=== PATIENT | female | born 1960 | race Caucasian/White ===

== ENCOUNTER 2016-02-29 12:57 | Outpatient (RCR) | payer BC ==
[~2016-02-29 12:57] MED LIST: BILBERRY500 MG PO; FERROUS SULFAT325 MG ORAL; GLUCOSAMIN-CHO1 EAC1 PO; MULTIVITAMINS1 EA14 PO; QUERCETIN DIHYDR1 GM MC; RUTIN MC; VITAMIN B COMP1 EAC5 PO; VITAMIN B-1000.4 MG PO; VITAMIN C500 M1 ORAL; VITAMIN D1000 UNI1 ORAL; [UNRECOGNIZED DRUG - OTHER] PO
== END 2016-03-26 | disposition home or self-care (01) ==
LOC: PTY 12:57
DX: S43.014A Anterior dislocation of right humerus, initial encounter (principal); S42.214D Unspecified nondisplaced fracture of surgical neck of right humerus, subsequent encounter for fracture with routine healing; Z91.81 History of falling; Z86.59 Personal history of other mental and behavioral disorders; X58.XXXA Exposure to other specified factors, initial encounter; Y92.9 Unspecified place or not applicable; Z88.6 Allergy status to analgesic agent; Z88.0 Allergy status to penicillin
CPT/HCPCS: 97110; 97140; G0283

== ENCOUNTER 2016-12-17 13:45 | Outpatient (RCR) | payer BC ==
[2016-12-19] MEDS ORDERED: IRON SUPPLEMENT (14:12)
== END 2016-12-24 | disposition home or self-care (01) ==
LOC: PTY 13:45
DX: M75.121 Complete rotator cuff tear or rupture of right shoulder, not specified as traumatic (principal)
CPT/HCPCS: 97110; 97140; 97161; G0283

== ENCOUNTER 2016-12-19 13:36 | Outpatient (CLI) | payer BC ==
[~2016-12-19] VITALS: Ht 160 cm; Wt 56.7 kg
[2016-12-19 14:06] VITALS: BP 134/75
[2016-12-19] MEDS ORDERED: IRON SUPPLEMENT (14:12)
--- NOTE | 2016-12-19 15:43 | GI Initial Consult Note ---
History of Present Illness General Date patient seen: Dec 19, 2016 Time patient seen: 15:39 Referring physician: TERRI Reason for Consultation: SCREENING COLON Present Illness HPI 56 year old female patient referred by Dr. Das for screening colonoscopy. In addition the patient presents with c/o of epigastric pain, long history of constipation and hemorrhoids. Has been taking [place]/Ibuprofen after her surgery in June 2015. The patient has tried changing her dietary habits with little success. Home Meds Reported Medications [Iron Supplement ] No Conflict Check 12/19/16 Rutin (Rutin) 25 Gm Powder, 25 GM MC DAILY, GM 07/25/15 Quercetin Dihydrate (QUERCETIN DIHYDRATE) 1 Gm Powder, 1 GM MC DAILY, GM 07/25/15 [Super Vision] No Conflict Check, 1 TAB-CAP PO DAILY 07/25/15 Vitamin B Complex/Folic Acid (VITAMIN B-100 COMPLEX TABLET) 0.4 Mg Tablet, 0.4 MG PO DAILY, TAB 07/25/15 Ascorbic Acid* (VITAMIN C*) 500 Mg Tablet, 1000 MG ORAL, #30 TAB 0 Refills 07/25/15 Cholecalciferol (Vitamin D3)* (VITAMIN D*) 1,000 Unit Tablet, 1000 UNIT ORAL DAILY, #30 TAB 07/21/15 Gluc/Myke-Msm#2/C/D3/Peter/Born ([id number]-CFD TAB) 1 Each Tablet, 1 EACH PO BID, TAB 07/21/15 Multivitamin (Multivitamins) 1 Each Tablet, 1 EACH PO DA, TAB 07/21/15 Discontinued Reported Medications Bilberry Fruit (BILBERRY) 500 Mg Capsule, 500 MG PO DAILY, CAP 07/25/15 Ferrous Sulfate* (FERROUS SULFATE*) 325 Mg Tablet, 325 MG ORAL DAILY, #30 TAB 0 Refills 07/25/15 Med list reviewed/reconciled: Yes Allergies: Coded Allergies: CODEINE (Verified Allergy, Unknown, 07/21/15) PENICILLINS (Verified Allergy, Unknown, 07/21/15) Patient History History Provided By: Patient PMH Narrative Molar Past Surgical History: 2015 Right Dislocated Shoulder Left Eye Family History Narrative adopted Social History: Reports: smoking - 1/2 packs a day x 16 years, quit for 25y, alcohol use, other - cofee Review of Systems All Other Systems: negative except mentioned in HPI Physical Exam Vital Signs Date Time Temp Pulse Resp B/P (MAP) Pulse Ox O2 Delivery O2 Flow Rate FiO2 12/19/16 14:06 97.7 73 16 134/75 97 Sp02 EP Interpretation: reviewed, normal General Appearance: well appearing, no apparent distress, alert Head: normocephalic EENT: PERRL/EOMI, normal ENT inspection Neck: supple Respiratory: normal breath sounds, no respiratory distress Cardiovascular: normal rate Gastrointestinal: normal inspection, non tender, soft, normal bowel sounds, non -distended Rectal: deferred Genitourinary: no CVA tenderness Musculoskeletal: normal inspection, back normal Neurologic: normal inspection, alert, oriented x3, responsive Psychiatric: normal inspection, judgement/insight normal, memory normal Skin: normal inspection, normal color, no rash, warm/dry, palpation normal, well hydrated Lymphatic: normal inspection, no adenopathy GI: Plan Problems: (1) Colonoscopy planned (2) Molar (3) Constipation (4) Abdominal pain Plan EGD/colonoscopy scheduled 12/27/16. - CLD & (Nulytely/Suprep) prep instructions given and acknowledged by patient. - NPO @ [place] day prior procedure explained. Seen with Dr. Roger. Thank you for this patient referral. Dianna Hartman N.P. Dec 19, 2016 15:43
== END 2016-12-19 14:15 | disposition home or self-care (01) ==
LOC: PAN 13:36
DX: K59.00 Constipation, unspecified (principal); R10.9 Unspecified abdominal pain; O02.0 Blighted ovum and nonhydatidiform mole; Z88.6 Allergy status to analgesic agent; Z88.0 Allergy status to penicillin; F17.210 Nicotine dependence, cigarettes, uncomplicated
CPT/HCPCS: 99201

== ENCOUNTER 2017-01-13 08:57 | Day surgery (SDC) | payer BC ==
[2017-01-13] VITALS (7 sets, daily range): BP systolic 121–140; BP diastolic 71–86
[~2017-01-13] VITALS: Ht 160 cm; Wt 55.3 kg
--- NOTE | 2017-01-13 06:46 | Anethesia Preoperative Eval ---
Anesthesia Pre-op PMH/ROS General Date of Evaluation: Jan 13, 2017 Time of Evaluation: 06:43 Anesthesiologist: danya ASA Score: ASA 3 Mallampati Score Class I : Soft palate, uvula, fauces, pillars visible Class II: Soft palate, uvula, fauces visible Class III: Soft palate, base of uvula visible Class IV: Only hard plate visible Mallampati Classification: Class I Surgeon: thierno Diagnosis: abdominal pain/colon screening Surgical Procedure: egd/colonoscopy Anesthesia History: none Social History: smoking - former smoker Family History: no anesthesia problems Allergies: Coded Allergies: CODEINE (Verified Allergy, Severe, HALLUCINATIONS, HOT FLASHES , 01/13/17) PENICILLINS (Verified Allergy, Severe, 01/13/17) Medications: see eMAR Past Medical History Cardiovascular: Reports: HTN Gastrointestinal/Genitourinary: Reports: other - constipation, abd pain, molar , Neurologic/Psychiatric: Reports: other - weak eye, migraine augustin, Musculoskeletal/Integumentary: Reports: other - bilateral carpal tunnel syndrome Anesthesia Pre-op Phys. Exam Physician Exam Last Vital Signs Date Time Temp Pulse Resp B/P (MAP) Pulse Ox O2 Delivery O2 Flow Rate FiO2 01/13/17 09:31 97.6 87 18 140/86 100 Room Air Constitutional: NAD Neurologic: other - weakness left eye Cardiovascular: RRR Respiratory: CTA Gastrointestinal: S/NT/ND Airway Exam Mallampati Score: Class II MO: full Neck: supple TMD: 2fb ROM: full Anesthesia Pre-op A/P Studies Pre-op Studies: EKG - nsr Risk Assessment & Plan Assessment: asa3 Plan: mac Status Change Before Surgery: No Pre-Antibiotics Drug: KAVYA Sanches Jan 13, 2017 06:46
[~2017-01-13 08:57] MED LIST changes: +IRON SUPPLEMENT
[2017-01-13] MEDS ORDERED: Propofol 200mg/20ml IV ONE (10:00)
[2017-01-13] MEDS ORDERED: Lidocaine 1% MPF 10mg/ml 5ml ONE (10:00)
--- NOTE | 2017-01-13 10:12 | Pre-Procedure Note/Attestation ---
Pre-Procedure Note/Attestation Complete Prior to Procedure Planned Procedure: not applicable Procedure Narrative: colonoscopy Indications for Procedure Pre-Operative Diagnosis: screening colon Attestation I attest that I discussed the nature of the procedure; its benefits; risks and complications; and alternatives (and the risks and benefits of such alternatives ), prior to the procedure, with the patient (or the patient's legal patient access representative). I attest that, if there was a reasonable possibility of needing a blood transfusion, the patient (or the patient's legal patient access representative) was given the [facility] standardized written summary, pursuant to the Yomi Regino Blood Safety Act ([place] Health and Safety Code # 1645, as amended). I attest that I re-evaluated the patient just prior to the surgery and that there has been no change in the patient's H&P, except as documented below: LUZ MARINA SHANE Jan 13, 2017 10:12
--- NOTE | 2017-01-13 10:13 | Short Stay Surgery H&P ---
History of Present Illness History of Present Illness Chief Complaint see recent clinic note HPI Susannah Mejia is a 56 year old female who was admitted on for Abdominal Pain/ Colon Screening Patient History Allergies: Coded Allergies: CODEINE (Verified Allergy, Severe, HALLUCINATIONS, HOT FLASHES , 01/13/17) PENICILLINS (Verified Allergy, Severe, 01/13/17) PAST MEDICAL HISTORY: Past Surgeries: Social History: Medication History Scheduled Cholecalciferol (Vitamin D3)* (Vitamin D*), 1,000 UNIT ORAL DAILY, (Reported) Gluc/Myke-Msm#2/C/D3/Peter/Born (Meisnbsklf-Yudlxggxecj-Mkf Tab), 1 EACH PO BID, (Reported) Multivitamin (Multivitamins), 1 EACH PO DA, (Reported) Quercetin Dihydrate (Quercetin Dihydrate), 1 GM MC DAILY, (Reported) Rutin (Rutin), 25 GM MC DAILY, (Reported) Vitamin B Complex/Folic Acid (Vitamin B-100 Complex Tablet), 0.4 MG PO DAILY, ( Reported) [Super Vision], 1 TAB-CAP PO DAILY, (Reported) Miscellaneous Medications Ascorbic Acid* (Vitamin C*), 1,000 MG ORAL, (Reported) [Iron Supplement ], (Reported) Physical Exam Vital Signs Last Vital Signs Date Time Temp Pulse Resp B/P (MAP) Pulse Ox O2 Delivery O2 Flow Rate FiO2 01/13/17 09:31 97.6 87 18 140/86 100 Room Air Plan Attestation Are the patient's medical conditions optimized for surgery? LUZ MARINA SHANE Jan 13, 2017 10:13
[2017-01-13] MEDS ORDERED: fentaNYL 100 mcg/2 mL IV PRN (10:15)
[2017-01-13] MEDS ORDERED: DiphenhydrAMINE 50mg/ml Inj IVP PRN (10:15)
[2017-01-13] MEDS ORDERED: Midazolam 2mg/2ml Inj IVP PRN (10:15)
[2017-01-13] MEDS ORDERED: LR 1000ml 1,000 ML IVLG SCH (10:15)
[2017-01-13] MEDS ORDERED: Atropine Inj 1mg/10ml Syr IV PRN (10:15)
--- NOTE | 2017-01-13 10:48 | Endoscopy Procedure Note ---
Endoscopy Procedure Note Indication for Procedure: screening Procedures Performed: colonoscopy Operative Findings/Diagnosis: diverticulosis Specimen: none Pt Tolerated Procedure Well: Yes Estimated Blood Loss: none Anesthesiologist: dany Anesthesia: MAC Implant(s) used?: No 50 yrs or older w/o bx or poly: Yes 10yrs. F/U not recommended: Yes If not recommended, why?: Above average risk 10 yrs. F/U needed: Yes 18 years or older w/prev. colo: No LUZ MARINA SHANE Jan 13, 2017 10:48
--- NOTE | 2017-01-13 11:04 | Immediate Post-Op Evaluation ---
Immediate Post-Op Evalulation Immediate Post-Op Evalulation Procedure: colonoscopy Date of Evaluation: Jan 13, 2017 Time of Evaluation: 11:04 IV Fluids: 600ml 0.9ns Blood Products: none Estimated Blood Loss: negligible Blood Pressure Systolic: 122 Blood Pressure Diastolic: 74 Pulse Rate: 73 Respiratory Rate: 18 O2 Sat by Pulse Oximetry: 99 Temperature (Fahrenheit): 97.3 Pain Score (1-10): 0 Nausea: No Vomiting: No Complications none Patient Status: awake, reacts, patent Hydration Status: adequate Drug: KAVYA Sanches Jan 13, 2017 11:04
--- NOTE | 2017-01-13 11:06 | 48 Hour Post Anesthesia Eval ---
Post Anesthesia Evaluation Procedure: colonoscopy Date of Evaluation: Jan 13, 2017 Time of Evaluation: 11:06 Blood Pressure Systolic: 122 0: 74 Pulse Rate: 73 Respiratory Rate: 18 Temperature (Fahrenheit): 97.3 O2 Sat by Pulse Oximetry: 100 Airway: patent Nausea: No Vomiting: No Pain Intensity: 0 Hydration Status: adequate Cardiopulmonary Status: stable Mental Status/LOC: patient returned to baseline Post-Anesthesia Complications: none Follow-up care needed: N/A KAVYA GALLO Jan 13, 2017 11:06
--- NOTE | 2017-01-13 15:45 | Procedure Note ---
DATE OF PROCEDURE: 01/13/2017 SURGEON: Anders Roger M.D. PROCEDURE: Colonoscopy. ANESTHESIOLOGIST: Lakshmi Pak M.D. INSTRUMENT: Olympus adult flexible colonoscope. INDICATION: Screening colonoscopy evaluation. REASON FOR PROCEDURE: The procedure, risks, benefits, and possible consequences, including hemorrhage, aspiration, perforation and infection, and alternative treatments, were explained to the patient/legal guardian by Dr. Anders Roger and the patient/legal guardian understood and accepted these risks. PROCEDURE: After informed consent was obtained and the patient was adequately sedated, first rectal examination was performed, which was positive for external and internal hemorrhoids. Then, the scope was advanced from rectum into the cecum, documented by appendiceal orifice, ileocecal valve, and right upper quadrant palpation. Quality of prep was very good. The patient had some scattered diverticulosis in both right and left colon. Otherwise, normal colonoscopy examination. Retroflexion of the rectum showed evidence of external and internal hemorrhoids. The patient tolerated the procedure without any complication. SUMMARY FINDINGS: 1. Internal and external hemorrhoids. 2. Scattered diverticulosis both in the right and left colon. RECOMMENDATION: Repeat colonoscopy in 10 years. Anders Roger M.D. DR: Angelica JOB#: [id number] CC:
--- NOTE | 2017-01-14 15:42 | Cardiology Report ---
APPROVED REPORT EKG Measurement Heart [id number] Normal sinus rhythm Normal ECG
== END 2017-01-13 11:50 | disposition home or self-care (01) ==
LOC: GAS 08:57
DX: Z12.11 Encounter for screening for malignant neoplasm of colon (principal); K64.4 Residual hemorrhoidal skin tags; K64.8 Other hemorrhoids; K57.30 Diverticulosis of large intestine without perforation or abscess without bleeding; Z88.6 Allergy status to analgesic agent; Z88.0 Allergy status to penicillin; I10 Essential (primary) hypertension
CPT/HCPCS: 45378; 93005; J2704; 94003; 94150

== ENCOUNTER → 2017-01-23 | Outpatient (RCR) | payer BC | END | disposition home or self-care (01) | LOC: PTY 12-26 13:52 | DX: M75.121 Complete rotator cuff tear or rupture of right shoulder, not specified as traumatic (principal) | CPT/HCPCS: 97110; 97140; G0283 ==

== ENCOUNTER 2017-01-28 14:11 | Outpatient (CLI) | payer BC ==
--- NOTE | 2017-01-28 14:30 | GI Progress Note ---
Assessment/Plan Problems: (1) Constipation ICD Codes: K59.00 - Constipation, unspecified SNOMED: 15009784 (2) Abdominal pain ICD Codes: R10.9 - Unspecified abdominal pain SNOMED: 67289396 Status: stable Status Narrative Seen with Dr. Roger. Assessment/Plan s/p colonoscopy SUMMARY FINDINGS reviewed with patient: 1. Internal and external hemorrhoids. 2. Scattered diverticulosis both in the right and left colon. RECOMMENDATION: RTC prn Repeat colonoscopy in 10 years. Subjective Gastrointestinal/Abdominal: Reports: no symptoms Objective General Appearance: WD/WN, no apparent distress, alert Cardiovascular: normal rate Respiratory/Chest: normal breath sounds, no respiratory distress Abdominal Exam: normal bowel sounds, non tender, soft Extremities: normal range of motion, non-tender Dianna Hartman N.P. Jan 28, 2017 14:30
== END 2017-01-28 14:45 | disposition home or self-care (01) ==
LOC: PAN 14:11
DX: K59.00 Constipation, unspecified (principal); R10.9 Unspecified abdominal pain; K57.30 Diverticulosis of large intestine without perforation or abscess without bleeding
CPT/HCPCS: 99211